=== PATIENT | female | born 1990 | race Caucasian/White ===

== ENCOUNTER 2019-09-27 23:25 | Emergency (ER) | payer MEDICAID, OTHER ==
[~2019-09-27] VITALS: Ht 165.1 cm; Wt 134.3 kg
[2019-09-27 23:43] VITALS: BP 121/73
== END 2019-09-28 01:49 | disposition left against medical advice (07) ==
LOC: ER 23:27
DX: K08.89 Other specified disorders of teeth and supporting structures (principal); Z53.21 Procedure and treatment not carried out due to patient leaving prior to being seen by health care provider

== ENCOUNTER → 2020-03-24 | Emergency (ER) | payer MEDICAID ==
[~2020-03-24] VITALS: Ht 167.6 cm; Wt 128.4 kg
[~2020-03-24] MED LIST: ENOXAPARIN SOD 100 MG/1 ML SYRINGE SC ONE
[2020-03-24 20:43] LABS: Basophils # (auto) 0.1 10 ^3/uL (0-0.2); Basophils % (auto) 0.9 % (0.0-2.0); Eosinophils # (auto) 0.2 10 ^3/uL (0-0.8); Eosinophils % (auto) 1.6 % (0.0-7.0); Hematocrit 38.7 % (36.0-46.0); Hemoglobin 11.3 g/dL (12.2-16.2); Lymphocytes # (auto) 1.9 10 ^3/uL (0.4-5.4); Lymphocytes % (auto) 17.6 % (10.0-50.0); Mean Corpuscular Hemoglobin 23.8 pg (28.0-32.0); Mean Corpuscular Hgb Conc. 29.3 g/dL (32.0-36.0); Mean Corpuscular Volume 81.3 fL (80.0-100.0); Monocytes # (auto) 0.7 10 ^3/uL (0-1.3); Monocytes % (auto) 6.4 % (0.0-12.0); Neutrophils # (auto) 8.1 10 ^3/uL (1.6-8.6); Neutrophils % (auto) 73.5 % (37.0-80.0); Platelet Count (auto) 441 10^3/uL (140-450); Red Blood Cells 4.76 10^6/uL (4.0-5.20); Red Cell Distribution Width 17.9 % (11.8-14.3)
[2020-03-24 20:55] LABS: INR 0.99 (0.9-1.15); Partial Thromboplastin Time 22.4 sec (23.0-31.2)
[2020-03-24 20:57] LABS: Albumin 2.9 g/dL (3.4-5.0); Calcium 8.5 mg/dL (8.5-10.1); Potassium 3.9 mmol/L (3.5-5.1)
[2020-03-24 21:02] LABS: BUN/Creatinine Ratio 14.3; Bilirubin, Total 0.2 mg/dL (0.2-1.0); Total Protein 7.2 g/dL (6.4-8.2)
[2020-03-24 22:08] VITALS: BP 128/84
== END | disposition home or self-care (01) ==
LOC: ER 19:08
DX: I82.432 Acute embolism and thrombosis of left popliteal vein (principal)
CPT/HCPCS: 36415; 80053; 85025; 85379; 85610; 85730; 93971; 96372; 99284; J1650

== ENCOUNTER 2020-04-27 12:20 | Inpatient (IN) | payer MEDICAID ==
[~2020-04-27] VITALS: Ht 162.6 cm; Wt 124.7 kg
[2020-04-27] MEDS ORDERED: SODIUM CHLORIDE 0.9% 1,000 ML IV ONE (13:00)
[2020-04-27] MEDS: SODIUM CHLORIDE 0.9% 1,000 ML IV ONE ×2 (13:20→17:17)
[2020-04-27] MEDS ORDERED: ENOXAPARIN SOD 100 MG/1 ML SYRINGE SC ONE (13:45)
[2020-04-27 13:50] LABS: Nucleated Red Blood Cells % 0.1 %
[2020-04-27 13:51] LABS: Basophils # (auto) 0.1 10 ^3/uL (0-0.2); Basophils % (auto) 0.9 % (0.0-2.0); Eosinophils # (auto) 0.2 10 ^3/uL (0-0.8); Eosinophils % (auto) 1.2 % (0.0-7.0); Hematocrit 38.2 % (36.0-46.0); Hemoglobin 12.3 g/dL (12.2-16.2); Lymphocytes # (auto) 1.6 10 ^3/uL (0.4-5.4); Lymphocytes % (auto) 12.6 % (10.0-50.0); Mean Corpuscular Hemoglobin 24.7 pg (28.0-32.0); Mean Corpuscular Hgb Conc. 32.2 g/dL (32.0-36.0); Mean Corpuscular Volume 76.6 fL (80.0-100.0); Monocytes # (auto) 0.8 10 ^3/uL (0-1.3); Monocytes % (auto) 6.8 % (0.0-12.0); Neutrophils # (auto) 9.7 10 ^3/uL (1.6-8.6); Neutrophils % (auto) 78.5 % (37.0-80.0); Platelet Count (auto) 492 10^3/uL (140-450); Red Blood Cells 4.99 10^6/uL (4.0-5.20); Red Cell Distribution Width 18.7 % (11.8-14.3); White Blood Cell 12.4 10^3/uL (4.4-10.8)
[2020-04-27 14:11] LABS: INR 1.03 (0.9-1.15); Partial Thromboplastin Time 23.5 sec (23.0-31.2)
[2020-04-27 14:12] LABS: Albumin 3.2 g/dL (3.4-5.0); Anion Gap 8 (5-15); Blood Urea Nitrogen 7 mg/dL (7-18); Calcium 9.3 mg/dL (8.5-10.1); Carbon Dioxide 26 mmol/L (21-32); Chloride 103 mmol/L (98-107); Glucose 97 mg/dL (74-106); Potassium 3.5 mmol/L (3.5-5.1); Sodium 137 mmol/L (136-145)
[2020-04-27 14:17] LABS: Alanine Aminotransferase 34 U/L (13-56); Alkaline Phosphatase 106 U/L (45-117); Aspartate Aminotransferase 28 U/L (15-37); BUN/Creatinine Ratio 13.5; Bilirubin, Total 0.3 mg/dL (0.2-1.0); GFR African American 176 mL/min; GFR Non-African American 145 mL/min; Total Protein 7.9 g/dL (6.4-8.2)
[2020-04-27] MEDS ORDERED: IOHEXOL 350 MG/ML 100ML IJ ONE (14:43)
[2020-04-27] MEDS ORDERED: NITROGLYCERIN 0.4 MG SL TAB SL PRN ×2 (14:45→16:00)
[2020-04-27] MEDS ORDERED: MORPHINE SULF INJ 2 MG/ML SYRINGE 1ML IV PRN ×2 (14:45→16:00)
[2020-04-27] MEDS ORDERED: SOD CHL 0.45% 1,000 ML IV ONE (14:45)
[2020-04-27] MEDS ORDERED: HEPARIN DRIP/D5W 100UNITS/ML 250 ML IV SCH (15:45)
[2020-04-27] MEDS ORDERED: MORPHINE SULFATE 4 MG/ML SYR/VIAL IV ONE (17:30)
[2020-04-27] MEDS ORDERED: HEPARIN SODIUM (PORCINE) 5000 UNITS/ML 1ML VIAL IV ONE (17:30)
[2020-04-27] MEDS: ONDANSETRON HCL 4 MG/2 ML VIAL IV PRN (17:38)
[2020-04-27] MEDS: HEPARIN DRIP/D5W 100UNITS/ML 250 ML IV SCH (18:06)
[2020-04-27] MEDS: HYDROcodone-ACET 5/325MG TAB PO PRN (19:03)
[2020-04-27] MEDS ORDERED: IBUP800T24 PO (20:28)
[2020-04-27] MEDS ORDERED: ACET-1304 PO (20:28)
[2020-04-27 21:10] LABS: Basophils # (auto) 0 10 ^3/uL (0-0.2); Eosinophils # (auto) 0.1 10 ^3/uL (0-0.8); Eosinophils % (auto) 1.1 % (0.0-7.0); Hemoglobin 10.9 g/dL (12.2-16.2); Lymphocytes # (auto) 1.7 10 ^3/uL (0.4-5.4); White Blood Cell 10.7 10^3/uL (4.4-10.8)
[2020-04-27 21:12] LABS: Basophils % (auto) 0.4 % (0.0-2.0); Hematocrit 33.7 % (36.0-46.0); Lymphocytes % (auto) 15.5 % (10.0-50.0); Mean Corpuscular Hemoglobin 24.8 pg (28.0-32.0); Mean Corpuscular Hgb Conc. 32.4 g/dL (32.0-36.0); Mean Corpuscular Volume 76.4 fL (80.0-100.0); Monocytes # (auto) 0.9 10 ^3/uL (0-1.3); Monocytes % (auto) 8.2 % (0.0-12.0); Neutrophils % (auto) 74.8 % (37.0-80.0); Platelet Count (auto) 409 10^3/uL (140-450); Red Blood Cells 4.41 10^6/uL (4.0-5.20)
[2020-04-27 21:36] LABS: INR 1.12 (0.9-1.15)
[2020-04-27 21:46] LABS: Partial Thromboplastin Time 72.3 sec (23.0-31.2)
[2020-04-27] MEDS ORDERED: ENOXAPARIN SOD 100 MG/1 ML SYRINGE SC SCH (22:00)
[2020-04-28] VITALS (22 sets, daily range): BP systolic 106–128; BP diastolic 57–81
[2020-04-28 01:00] LABS: INR 1.07 (0.9-1.15); Partial Thromboplastin Time 43.1 sec (23.0-31.2)
[2020-04-28] MEDS: ONDANSETRON HCL 4 MG/2 ML VIAL IV PRN ×3 (03:29→20:26)
[2020-04-28] MEDS: MORPHINE SULF INJ 2 MG/ML SYRINGE 1ML IV PRN ×3 (03:29→20:25)
[2020-04-28 06:32] LABS: INR 1.05 (0.9-1.15); Partial Thromboplastin Time 40.7 sec (23.0-31.2)
[2020-04-28 06:49] LABS: Monocytes # (auto) 0.7 10 ^3/uL (0-1.3); Monocytes % (auto) 8.3 % (0.0-12.0)
[2020-04-28 06:51] LABS: Basophils # (auto) 0.1 10 ^3/uL (0-0.2); Basophils % (auto) 0.6 % (0.0-2.0); Eosinophils # (auto) 0.1 10 ^3/uL (0-0.8); Eosinophils % (auto) 1.5 % (0.0-7.0); Hemoglobin 11.3 g/dL (12.2-16.2); Lymphocytes # (auto) 1.1 10 ^3/uL (0.4-5.4); Lymphocytes % (auto) 13.4 % (10.0-50.0); Mean Corpuscular Hgb Conc. 31.4 g/dL (32.0-36.0); Mean Corpuscular Volume 79.4 fL (80.0-100.0); Neutrophils # (auto) 6.5 10 ^3/uL (1.6-8.6); Neutrophils % (auto) 76.2 % (37.0-80.0); Nucleated Red Blood Cells % 0.2 %; Platelet Count (auto) 400 10^3/uL (140-450); Red Blood Cells 4.53 10^6/uL (4.0-5.20); Red Cell Distribution Width 18.8 % (11.8-14.3); White Blood Cell 8.5 10^3/uL (4.4-10.8)
[2020-04-28 07:01] LABS: Albumin 2.4 g/dL (3.4-5.0); BUN/Creatinine Ratio 18.6; Bilirubin, Total 0.2 mg/dL (0.2-1.0); Calcium 8.6 mg/dL (8.5-10.1); Potassium 3.5 mmol/L (3.5-5.1); Total Protein 6.6 g/dL (6.4-8.2)
[2020-04-28] MEDS: HEPARIN DRIP/D5W 100UNITS/ML 250 ML IV SCH ×2 (07:27→18:30)
[2020-04-28] MEDS: HYDROcodone-ACET 5/325MG TAB PO PRN ×3 (07:38→23:11)
--- NOTE | 2020-04-28 10:55 | NUR ---
Pt being admitted to ICU ALEX FOSTER admitted to ICU via gurney on property assessment monitor, and portable 02. Patient transferred to bed, connected to ICU monitoring and oxygen, and weighed by bed scale. Patient oriented to Bing Coker, primary RN, unit, room, bed, and unit policies regarding patient care and visiting hours. All questions and concerns addressed, patient verbalized understanding.
[2020-04-28 11:48] LABS: INR 1.03 (0.9-1.15); Partial Thromboplastin Time 52.3 sec (23.0-31.2)
--- NOTE | 2020-04-28 14:15 | NUR ---
URINE SAMPLE SENT
--- NOTE | 2020-04-28 15:30 | NUR ---
DR TRENT AT BEDSIDE TO ASSESS PATIENT AND DISCUSS PLAN OF CARE. ALL ORDERS NOTED IN CHART.
[2020-04-28 15:31] LABS: Urine Bacteria NONE SEEN /hpf (None Seen); Urine Blood Negative /uL (Negative); Urine Mucus FEW (None Seen); Urine WBC 15 /hpf (0 - 5)
--- NOTE | 2020-04-28 17:19 | NUR ---
PAGED LEFT MESSAGE FOR DR TRENT FOR PATIENTS PAIN. PATIENT IS COMPLAINING OF PAIN AND CURRENT MEDICATIONS NO RELIEVING LONG ENOUGH. AWAITING CALL BACK.
[2020-04-28 18:28] LABS: INR 1.03 (0.9-1.15); Partial Thromboplastin Time 58.7 sec (23.0-31.2)
--- NOTE | 2020-04-28 19:45 | NUR ---
OPENING NOTE REPORT RECEIVED FROM VALERY RN. PATIENT IS A/OX4 AND CONNECTED TO CONTINUOUS BEDSIDE MONITORS. PATIENT IS IN SINUS RHYTHM ON THE MONITOR, HEART RATE IN 80-90'S. PATIENT IS ON 2L NASAL CANNULA, SPO2 98%, PT DENIES ANY SOB OR DISTRESS. SKIN ALL INTACT AND PATIENT IS ABLE TO TURN AND REPOSITION HERSELF IN BED. HEPARIN GTT RUNNING AT 22ML/HR THROUGH LEFT AC PERIPHERAL LINE. POC DISCUSSED WITH PATIENT, ALL QUESTIONS ANSWERED. PATIENT EDUCATED TO STAY IN BED AND USE CALL LIGHT IF SHE NEEDS TO USE TO BEDPAN. PATIENT VERBALIZED UNDERSTANDING. CALL LIGHT WITHIN REACH.
--- NOTE | 2020-04-28 20:15 | NUR ---
PM CARE PATIENT CALLED TO USE THE BEDPAN. BEDPAN PLACE UNDER PATIENT. URINE FROM BEDPAN GOT ONTO CHUX AND LINEN. PATIENT GIVEN A COMPLETE LINEN CHANGE AND CLEANSED WITH WARM SOAPY WASH CLOTHS. NEW GOWN PLACED ON PATIENT.
[2020-04-29] VITALS (33 sets, daily range): BP systolic 100–139; BP diastolic 58–85
--- NOTE | 2020-04-29 00:18 | NUR ---
[facility] AT BEDSIDE TO DRAW PATIENT BURKETT
[2020-04-29 01:01] LABS: INR 1.01 (0.9-1.15); Partial Thromboplastin Time 53.3 sec (23.0-31.2)
--- NOTE | 2020-04-29 01:05 | NUR ---
PTPTT RESULT FOR PTT 53.3. THIS IS THE THIRD THERAPEUTIC VALUE. PER PHARMACY PROTOCOL, NEXT DRAW WILL BE IN 24 HOURS.
[2020-04-29] MEDS: MORPHINE SULF INJ 2 MG/ML SYRINGE 1ML IV PRN (02:26)
[2020-04-29] MEDS: ONDANSETRON HCL 4 MG/2 ML VIAL IV PRN ×2 (02:26→22:51)
--- NOTE | 2020-04-29 03:30 | NUR ---
AM CARE PATIENT USED BEDPAN AND VOIDED ON LINENS. HYGIENE CARE PROVIDED TO PATIENT. COMPLETE LINEN AND GOWN CHANGE PROVIDED.
--- NOTE | 2020-04-29 03:47 | NUR ---
CALLED THROUGH PBX. IS COVERING RIGHT NOW. SPOKE TO REGARDING PATIENTS PAIN LEVEL OF 10/10 AND VOMITING DESPITE MORPHINE AND ZOFRAN JUST GIVEN AND COMPLAINTS OF PAIN TO "UNDERNEATH RIBCAGE". MD UPDATED ON PATIENT STATUS, RHYTHM ON MONITOR AND VITALS. NEW TELEPHONE ORDER FOR DILAUDID 0.4MG Q4H PRN FOR SEVERE PAIN. ORDER TO D/C EXISTING MORPHINE ORDER. ORDER READ BACK AND VERIFIED WITH MD.
[2020-04-29] MEDS: HYDROmorphone HCL 2 MG/ML VL IV PRN ×5 (04:33→22:52)
[2020-04-29] MEDS: HEPARIN DRIP/D5W 100UNITS/ML 250 ML IV SCH ×2 (05:46→16:00)
--- NOTE | 2020-04-29 07:22 | NUR ---
CLOSING PATIENT SLEEPING COMFORTABLY, CONNECTED TO BEDSIDE MONITORS. PATIENT REMAINS ON HEPARIN GTT AT 22ML/HR. REPORT ENDORSED TO DAYSHIFT NEGAR OBANDO TO ASSUME CARE OF PATIENT.
--- NOTE | 2020-04-29 08:00 | NUR ---
PT SLEEPING AWAKENED FOR ASSESSMENT REPORTS CHEST PAIN AT RT COSTAL MARGIN, WORSE WITH DEEP BREATH AND WITH MOVEMENT. DENIES PAIN IN LEGS OR ABD. SEE INTERVENTIOS FOR FULL ASSESSMENT
--- NOTE | 2020-04-29 09:20 | NUR ---
PAIN REASSESSMENT 10/24. SLEEPING. RESP SHALLOW BUT UNLABORED.
--- NOTE | 2020-04-29 11:44 | NUR ---
AWOKE TO USE BEDPAN. AGAIN REPORTS CHEST PAIN AT RT COASTAL MARGIN 810. MED WITH MORPHINE TOO EARLY FOR CHALO
--- NOTE | 2020-04-29 15:42 | NUR ---
DR. TRENT HERE
--- NOTE | 2020-04-29 16:41 | NUR ---
REPORT GIVEN TO BOONE BILLS
--- NOTE | 2020-04-29 16:47 | NUR ---
REPORT REPORT RECEIVED FROM TOPHER BILLS, CARE ASSUMED. PT RESTING IN BED. VS STABLE, NO DISTRESS NOTED AT THIS TIME. CALL LIGHT AND PERSONAL BELONGINGS WITHIN REACH. PT INSTRUCTED TO CALL FOR ASSISTANCE. PT VERBALIZED UNDERSTANDING. WILL CONTINUE TO MONITOR.
[2020-04-29] MEDS: PANTOPRAZOLE 40 MG/10 ML VIAL INJ IV SCH (18:02)
--- NOTE | 2020-04-29 18:02 | NUR ---
PAIN PATIENT C/O 10/10 PAIN RIGHT UPPER QUADRANT. PATIENT GIVEN PRN DILAUDID PAIN MEDICATION. ASSISTED PATIENT WITH REPOSITIONING. VS REMAIN STABLE AT THIS TIME.
--- NOTE | 2020-04-29 18:30 | NUR ---
MD VISIT DR.GRIGORIYAN SARAH AT BEDSIDE. MD WOULD LIKE TO CONSULT REGARDING TPA INFUSION. CONSULTATION PLACED.
--- NOTE | 2020-04-29 19:15 | NUR ---
REPORT REPORT GIVEN TO SOLOMON BILLS, CARE ENDORSED.
--- NOTE | 2020-04-29 19:15 | NUR ---
OPENING NOTE REPORT RECEIVED FROM VALERY RN PATIENT IS A/OX4 RESTING IN BED AND ABLE TO VERBALIZE ALL NEEDS. PATIENT IS ON 2L NASAL CANNULA SPO2 AT 97%. RECEIVED PATIENT ON HEPARIN GTT. IV TO LEFT AC RUNNING HEPARIN GTT AT 22ML/HR OR 2200 UNIT/HR. IV TO RIGHT AC 18G INTACT/PATENT AND SALINE LOCKED. PATIENT STATES HER PAIN IS "COMING AND GOING". PATIENT STATES PAIN IS LOCATED UNDER RIGHT RIBCAGE AND ABDOMEN AND SAYS IT IS A BURNING SENSATION. POC DISCUSSED WITH PATIENT, ALL QUESTIONS ANSWERED. PENDING RADIOLOGY CONSULT TOMORROW.
--- NOTE | 2020-04-29 20:10 | NUR ---
PM CARE PATIENT ASKED TO USE BEDPAN. PATIENT OVERFILLED BEDPAN WITH URINE AND SOAKED LINENS. COMPLETE LINEN CHANGE PROVIDED. PATIENT CLEANED WITH WARM SOAPY WASH CLOTHS. BED BATH PROVIDED. NEW GOWN AND LINENS PROVIDED. PATIENT TOLERATED WELL AND IS ABLE TO HELP WITH TURNING.
--- NOTE | 2020-04-29 22:57 | NUR ---
PAIN PATIENT WOKE UP C/O 10/10 PAIN TO EPIGASTRIC AREA. PATIENT REQUESTED PAIN MEDICATION. DILAUDID ADMINISTERED ORDERED BY MD. WILL CONTINUE TO MONITOR.
--- NOTE | 2020-04-29 23:22 | NUR ---
PAIN REASSESSMENT PATIENT IS NOW SLEEPING COMFORTABLY. NO SIGNS OF PAIN OR DISTRESS NOTED.
[2020-04-30] VITALS (22 sets, daily range): BP systolic 112–151; BP diastolic 66–92
[2020-04-30 01:13] LABS: Basophils # (auto) 0.1 10 ^3/uL (0-0.2); Eosinophils # (auto) 0 10 ^3/uL (0-0.8); Hemoglobin 11.9 g/dL (12.2-16.2); Lymphocytes # (auto) 1.4 10 ^3/uL (0.4-5.4); Mean Corpuscular Hemoglobin 24.4 pg (28.0-32.0); Nucleated Red Blood Cells % 0.1 %
[2020-04-30 01:15] LABS: Basophils % (auto) 0.4 % (0.0-2.0); Eosinophils % (auto) 0.3 % (0.0-7.0); Hematocrit 37.1 % (36.0-46.0); Lymphocytes % (auto) 8.1 % (10.0-50.0); Mean Corpuscular Hgb Conc. 32.1 g/dL (32.0-36.0); Monocytes % (auto) 6.2 % (0.0-12.0); Neutrophils # (auto) 14.2 10 ^3/uL (1.6-8.6); Platelet Count (auto) 522 10^3/uL (140-450); Red Blood Cells 4.88 10^6/uL (4.0-5.20); Red Cell Distribution Width 18.7 % (11.8-14.3); White Blood Cell 16.7 10^3/uL (4.4-10.8)
[2020-04-30 01:29] LABS: INR 1.06 (0.9-1.15); Partial Thromboplastin Time 46.1 sec (23.0-31.2)
[2020-04-30 01:34] LABS: BUN/Creatinine Ratio 9.5; Calcium 9.5 mg/dL (8.5-10.1); Magnesium 2.2 mg/dL (1.6-2.6); Potassium 3.8 mmol/L (3.5-5.1)
--- NOTE | 2020-04-30 01:38 | NUR ---
PTT NEW PTT OF 46.1. PER PHARMACY PROTOCOL, NO BOLUS AND INCREASE BY 2 UNITS. NEW RATE OF 24ML/HR OR 2400UNIT/HR WILL ORDER NEXT PTT IN 6 HOURS.
[2020-04-30] MEDS: HEPARIN DRIP/D5W 100UNITS/ML 250 ML IV SCH ×3 (03:29→23:53)
[2020-04-30] MEDS: HYDROmorphone HCL 2 MG/ML VL IV PRN ×4 (04:19→19:22)
--- NOTE | 2020-04-30 04:20 | NUR ---
PAIN PATIENT WOKE UP C/O 10/10 PAIN. PATIENT STATES HER PAIN IS LOCATED IN HER ABDOMEN AND RIGHT LOWER RIBCAGE. DILAUDID GIVEN ORDERED BY MD. WILL REASSESS PAIN IN 30 MIN.
--- NOTE | 2020-04-30 04:50 | NUR ---
REASSESSMENT PATIENT SLEEPING COMFORTABLY AT THIS TIME, NO SIGNS OF PAIN NOTED.
--- NOTE | 2020-04-30 07:05 | NUR ---
CLOSING PATIENT RESTING IN BED ON CONTINUOUS MONITOR. HEART RATE IN 120'S, PATIENT TACHY ALL NIGHT. PATIENT REMAINS ON HEPARIN GTT AT 24ML/HR (2400UNITS/HR). NEXT PTT FOR 0740 THIS AM. CARE ENDORSED TO DAYSHIFT NEGAR MONROE TO ASSUME CARE OF PATIENT.
--- NOTE | 2020-04-30 07:05 | NUR ---
Assumed care of pt., report received per NEGAR Smart. No distress noted, pt. reading sinus tachycardia 120's, will cont.to monitor for any changes, call best in reach, assessment ongoing.
[2020-04-30 07:52] LABS: INR 1.1 (0.9-1.15); Partial Thromboplastin Time 53.8 sec (23.0-31.2)
[2020-04-30] MEDS ORDERED: OMNIPAQUE ORAL SOLN 500ml 12mg/ml PO ONE (09:08)
--- NOTE | 2020-04-30 09:15 | NUR ---
SPOKE TO PATIENT'S NURSE MABEL AND BOONE ELECTRIC MOTOR REPAIRING SUPERVISOR RE: TPA INFUSION OF PE AND CT ABD/PELVIS. PATIENT HR 128-132 AND C/O INCREASED PAIN IN CHEST. BOONE STATES PATIENT NOT STABLE FOR CT ABD/PELVIS TODAY.
[2020-04-30] MEDS: ACETAMINOPHEN 325 MG TAB PO PRN ×2 (09:19→21:58)
[2020-04-30] MEDS: HYDROcodone-ACET 5/325MG TAB PO PRN ×3 (09:19→23:07)
[2020-04-30] MEDS: PANTOPRAZOLE 40 MG/10 ML VIAL INJ IV SCH (09:21)
--- NOTE | 2020-04-30 09:30 | NUR ---
CALL PLACED TO DR REESE RE: TPA INFUSION OF TO PULM ART EMBOLISM. DR HORVATH NOT IN I.R. THIS WEEK.
--- NOTE | 2020-04-30 10:00 | NUR ---
DR REESE RETURNS CALL - INFORMED OF DR HORVATH NOT IN I.R. THIS WEEK. ADVISED MD TO CALL RN IN ICU CARING FOR PATIENT.
[2020-04-30] MEDS: DIGOXIN (250MCG/ML) 2 ML AMPULE IV SCH ×3 (10:31→21:42)
--- NOTE | 2020-04-30 11:13 | NUR ---
Nutrition Assessment Est energy needs 8838-5311 kcal (11-14kcal/kg BW 122.5kg) Est protein needs 55-71g (1-1.3g/kg IBW 54.5kg) WIll reassess prn. Addendum: 04/30/20 at [address] Amended: Links added.
--- NOTE | 2020-04-30 11:45 | NUR ---
SPOKE TO BOONE CIRCULAR KNITTER HELPER - STATES TO HOLD OFF ON CT ABD/PELIVS UNTIL PATIENT MORE STABLE. PATIENT HAVING TPA INFUSED ANGIOGRAPHY TODAY AND MAY HAVE PIGTAIL REMOVED BY TOMORROW AND BE MORE STABLE FOR CT ABD/PELVIS.
--- NOTE | 2020-04-30 11:52 | NUR ---
SPOKE TO MABEL BILLS PATIENT'S NURSE - INFORMED HIM THAT CT WOULD BE CANCELED FOR TODAY AND RE-EVALUATED FOR TOMORROW.
[2020-04-30] MEDS ORDERED: LIDOCAINE 2%HCL (LOCAL ANESTH.) INJ 20ML MDV ONE (12:50)
[2020-04-30] MEDS ORDERED: IOHEXOL 350 MG/ML 100ML IJ ONE ×2 (12:50→14:27)
--- NOTE | 2020-04-30 13:49 | NUR ---
pt. off floor to OR /c FUEL CELL ENGINEER, no distress noted, pt. SBAR given to FUEL CELL ENGINEER, will cont.to monitor for any changes upon pt. return to floor.
[2020-04-30] MEDS ORDERED: SODIUM CHL 0.9% 0 ML ONE (14:02)
[2020-04-30] MEDS ORDERED: fentaNYL CITRATE 100 MCG/2 ML VL ONE (14:02)
[2020-04-30] MEDS ORDERED: MIDAZOLAM HCL 1MG/1ML-2 ML VIAL ONE (14:02)
[2020-04-30] MEDS ORDERED: ANGIOMAX 250 MG VIAL IV ONE (14:02)
[2020-04-30] MEDS ORDERED: ALTEPLASE (RECOMBINANT) 100 MG in STERILE WATER 100 ML IV ONE (14:15)
[2020-04-30 14:44] LABS: INR 1.12 (0.9-1.15); Partial Thromboplastin Time 57.5 sec (23.0-31.2)
--- NOTE | 2020-04-30 15:10 | NUR ---
Received pt. from boot and shoe laborer, report per boot and shoe laborer RN, pt. attached to monitor and reading sinus tachycardia 1teen, will cont.to monitor for any changes, assessment ongoing.n
[2020-04-30] MEDS ORDERED: ALTEPLASE (RECOMBINANT) 100 MG in STERILE WATER 100 ML IV SCH (17:20)
--- NOTE | 2020-04-30 19:05 | NUR ---
No distress noted, pt. report given to NEGAR Mckeon. Care of pt. assumed per NOC shift, day shift relinquished care and signed off.
--- NOTE | 2020-04-30 19:12 | NUR ---
ATTEMPTED TO CONTACT LAB FOR PTT DRAW - NO ANSWER AT THIS TIME, WILL TRY AGAIN
--- NOTE | 2020-04-30 19:13 | NUR ---
CONTACTED LAB - PER LAB INVESTIGATOR VICE ON THEIR WAY
[2020-04-30] MEDS: ONDANSETRON HCL 4 MG/2 ML VIAL IV PRN (19:22)
--- NOTE | 2020-04-30 19:30 | NUR ---
OPENING NOTE: A&OX4. REPORTS 04/25 ABDOMINAL/CHEST PAIN. SINUS TACH, HR 120s. SBP 130s. LS CTA, DIMINISHED TO BASES. SHALLOW TACHYPNEIC BREATHS. SpO2>95% ON 4 L NC. ABD SOFT. HYPOACTIVE BS. LBM 04/27. VOIDING VIA BEDPAN. SKIN GROSSLY INTACT, SEE SKIN AND WOUND FLOWSHEET FOR ASSESSMENT. 18 G PIV TO RIGHT AC, CDI, AND PATENT WITH BLOOD RETURN. 20 G PIV TO LEFT AC, CDI, AND PATENT WITH BLOOD RETURN. SHEATH TO RIGHT FEMORAL, CDI, NO HEMATOMA OR ECCHYMOSIS NOTED. DENIES SHORTNESS OF BREATH, NAUSEA/VOMITING, NUMBNESS AND TINGLING AT THIS TIME. REINFORCED POC. MAINTAINED PATIENT SAFETY: ADVISED TO KEEP RIGHT LEG STRAIGHT, BED LOCKED AND IN THE LOWEST POSITION, FREQUENT VISUAL CHECKS AND CALL LIGHT WITHIN REACH. WILL CONT CARE
--- NOTE | 2020-04-30 19:41 | NUR ---
DR MORALES AT BEDSIDE: UPDATED ON PATIENT'S STATUS, AND PROCEDURE COMPLETED TODAY. NO NEW ORDERS AT THIS TIME
--- NOTE | 2020-04-30 19:44 | NUR ---
TEMP 100.7F TO LEFT AXILLARY AND 101.5F TO RIGHT AXILLARY - REMOVED BLANKETS, AND PLACED STANDING FAN IN ROOM
--- NOTE | 2020-04-30 20:18 | NUR ---
PTT 51.9 - NO CHANGE PER PROTOCOL
--- NOTE | 2020-04-30 20:29 | NUR ---
TEMP 100.4F AXILLARY - WILL CONTINUE WITH CURRENT MEASURES
[2020-04-30] MEDS: ALTEPLASE (RECOMBINANT) 100 MG in STERILE WATER 100 ML IV SCH (21:22)
--- NOTE | 2020-04-30 21:58 | NUR ---
TEMP 101.8F AXILLARY - TYLENOL PRN GIVEN
--- NOTE | 2020-04-30 23:13 | NUR ---
TEMP 101.5F AXILLARY BUT 98.2F ORALLY: PATIENT DENIES CHILLS, OR FEELING WARM. VSS OTHERWISE
[2020-05-01] VITALS (25 sets, daily range): BP systolic 122–166; BP diastolic 61–93
--- NOTE | 2020-05-01 00:20 | NUR ---
ROUNDED: SLEEPING. EVEN AND UNLABORED BREATHING. VSS OTHERWISE. WILL CONT CARE
[2020-05-01] MEDS: HYDROmorphone HCL 2 MG/ML VL IV PRN ×5 (01:18→19:55)
--- NOTE | 2020-05-01 02:00 | NUR ---
HUMIDIFIED OXYGEN: PLACED ON HUMIDIFIED OXYGEN
[2020-05-01] MEDS: HYDROcodone-ACET 5/325MG TAB PO PRN ×3 (03:31→16:28)
[2020-05-01] MEDS: ACETAMINOPHEN 325 MG TAB PO PRN ×3 (03:31→16:27)
--- NOTE | 2020-05-01 03:31 | NUR ---
RECTAL TEMP 102.6F - ICE PACKS APPLIED TO AXILLA
--- NOTE | 2020-05-01 03:32 | NUR ---
PAIN/FEVER: NORCO PRN GIVEN FOR PAIN, AND 325 MG TYLENOL PRN GIVEN FOR FEVER.
--- NOTE | 2020-05-01 03:35 | NUR ---
BLOOD-TINGED NASAL SECRETIONS: PATIENT BLEW HER NOSE, AND NOTED TO BE BLOOD TINGED. ADVISED NOT TO BLOW HER NOSE HARD
--- NOTE | 2020-05-01 03:39 | NUR ---
LARGE VOID X1
--- NOTE | 2020-05-01 03:40 | NUR ---
PARTIAL LINEN CHANGE COMPLETED
[2020-05-01 03:52] LABS: Eosinophils # (auto) 0 10 ^3/uL (0-0.8); Hemoglobin 13.6 g/dL (12.2-16.2); Lymphocytes # (auto) 0.7 10 ^3/uL (0.4-5.4); Mean Corpuscular Hemoglobin 24.9 pg (28.0-32.0); Mean Corpuscular Hgb Conc. 32.2 g/dL (32.0-36.0); Monocytes # (auto) 1.1 10 ^3/uL (0-1.3)
[2020-05-01 03:54] LABS: Basophils # (auto) 0.1 10 ^3/uL (0-0.2); Basophils % (auto) 0.3 % (0.0-2.0); Hematocrit 42.4 % (36.0-46.0); Mean Corpuscular Volume 77.3 fL (80.0-100.0); Monocytes % (auto) 4.6 % (0.0-12.0); Neutrophils # (auto) 22.1 10 ^3/uL (1.6-8.6); Neutrophils % (auto) 92.1 % (37.0-80.0); Nucleated Red Blood Cells % 0.1 %; Platelet Count (auto) 531 10^3/uL (140-450); Red Blood Cells 5.48 10^6/uL (4.0-5.20); Red Cell Distribution Width 18.6 % (11.8-14.3)
[2020-05-01 04:10] LABS: BUN/Creatinine Ratio 7.7; Calcium 9.1 mg/dL (8.5-10.1); Potassium 4.2 mmol/L (3.5-5.1)
[2020-05-01 04:30] LABS: INR 1.18 (0.9-1.15); Partial Thromboplastin Time 47.1 sec (23.0-31.2)
[2020-05-01] MEDS ORDERED: ALTEPLASE (RECOMBINANT) 100 MG ONE (04:35)
--- NOTE | 2020-05-01 04:36 | NUR ---
PTT 47.1 - INCREASED HEPARIN BY 200 UNITS/HR - CURRENT RATE 26 ML/HR
[2020-05-01] MEDS: ALTEPLASE (RECOMBINANT) 100 MG in STERILE WATER 100 ML IV SCH ×2 (04:53→11:45)
--- NOTE | 2020-05-01 05:11 | NUR ---
SPOKE WITH DR. MARTIN: NOTIFIED OF FEVER, WBC, AND INTERVENTIONS THUS FAR. ORDERS FOR BLOOD CULTURES, URINALYSIS, URINE CULTURE, CXR, AND CONTINUE WITH COOLING MEASURES. ORDERS READBACK AND VERIFIED
--- NOTE | 2020-05-01 06:12 | NUR ---
TEMP REMAINS ELEVATED - CONTINUE WITH COOLING MEASURES: ICE PACK APPLIED TO BILATERAL AXILLA, AND FAN IN ROOM. PATIENT DENIES CHILLS, OR FEELING WARM. WILL ENDORSE TO DAY SHIFT.
--- NOTE | 2020-05-01 06:15 | NUR ---
NOTIFIED LAB OF NEED FOR BLOOD CULTURE DRAW
--- NOTE | 2020-05-01 07:04 | NUR ---
REPORT AND CARE ENDORSED TO NEGAR MONROE
--- NOTE | 2020-05-01 07:05 | NUR ---
Assumed care of pt., report received per NEGAR Mckeon. No distress noted, pt. reading sinus tachycardia 130's, febrile 103.8, MD called per NOC RN, orders in place, will cont.to monitor for any changes, call best in reach, assessment ongoing.
--- NOTE | 2020-05-01 07:15 | NUR ---
Message left for Dr. Stovall to make aware of pt current condition, will cont. to monitor for any changes, assessment ongoing.
[2020-05-01] MEDS: PANTOPRAZOLE 40 MG/10 ML VIAL INJ IV SCH (10:11)
[2020-05-01 11:12] LABS: INR 1.33 (0.9-1.15); Partial Thromboplastin Time 46.7 sec (23.0-31.2)
--- NOTE | 2020-05-01 11:15 | NUR ---
Dr. Stovall notified of pt. cont. tachycardia 150's and temp 105 f. New orders received, will cont.to monitor for any changes, assessment is ongoing.
--- NOTE | 2020-05-01 11:29 | NUR ---
Blaine Conley notified of pt heart rate per Dr. Stovall, new orders received and will be implemented, will cont.to monitor for effectiveness, assessment ongoing.
[2020-05-01] MEDS: SODIUM CHLORIDE 0.9% 1,000 ML IV SCH (11:30)
[2020-05-01] MEDS: HEPARIN DRIP/D5W 100UNITS/ML 250 ML IV SCH ×2 (11:30→22:22)
[2020-05-01] MEDS ORDERED: SODIUM CHLORIDE 0.9% 1,000 ML IV ONE ×2 (11:30→12:00)
[2020-05-01] MEDS ORDERED: VANCOMYCIN PER PHARMACY 0 MG IV SCH (11:30)
--- NOTE | 2020-05-01 11:30 | NUR ---
Andrews catheter insertion Patient assessed and determined to be in need of andrews catheter. Order obtained from MD. Patient educated on catheter and reason for insertion. All questions answered. Andrews catheter 16 guage Amharic inserted with clean sterile technique. Patient tolerated well.
[2020-05-01] MEDS ORDERED: levoFLOXacin 500MG 100 ML IV ONE (12:00)
[2020-05-01] MEDS: VANCOMYCIN 1GM/250ML 250 ML IV SCH ×2 (12:24→19:54)
[2020-05-01] MEDS ORDERED: CEFTRIAXONE SODIUM 2 GM in D5W 5% 50 ML IV SCH (14:00)
[2020-05-01] MEDS: metroNIDAZOLE 500MG/100ML 100 ML IV SCH ×2 (14:50→22:19)
--- NOTE | 2020-05-01 15:24 | NUR ---
Midline Placement: Patient educated on need for midline placement. All risks and benefits explained and all questions and concerns addresses prior to procedure. 18g/10 cm midline inserted via right cephalic vein using Ultrasound. Sterile technique utilized. Blood return obtained from the single lumen and flushed easily with NS using proper technique. Midline secured with saline lock; biodisc and occlusive dressing applied. Primary RN Tashi notified. Midline lot # [id number] Midline Placement: Patient educated on need for midline placement. All risks and benefits explained and all questions and concerns addresses prior to procedure. 18g/8 cm midline inserted via left cephalic vein using Ultrasound. Sterile technique utilized. Blood return obtained from the single lumen and flushed easily with NS using proper technique. Midline secured with saline lock; biodisc and occlusive dressing applied. Primary NEGAR Akins notified. Placed by Mallorie Conley NP Midline lot # [id number]
[2020-05-01 16:23] LABS: Albumin 2.7 g/dL (3.4-5.0)
[2020-05-01 16:27] LABS: Bilirubin, Total 3.3 mg/dL (0.2-1.0); Total Protein 8.5 g/dL (6.4-8.2)
[2020-05-01 16:54] LABS: Bilirubin, Direct 2.7 mg/dL (0-0.2)
--- NOTE | 2020-05-01 17:30 | NUR ---
Merchandise Planning Manager paged for transfer needs, will cont.to monitor for any changes, assessment ongoing.
--- NOTE | 2020-05-01 17:51 | NUR ---
Dr. Singletary notified of pt. needing higher level of care per Dr. Wilcox, according to Dr. Singletary pt. ok to transfer out, will cont.to monitor for any changes, assessment ongoing.
--- NOTE | 2020-05-01 18:00 | NUR ---
[employer] Business Segment Leader paged again for transfer needs, no returned call as of now, will cont.to monitor for any changes, assessment ongoing.
--- NOTE | 2020-05-01 18:30 | NUR ---
Manufacturing Design Engineer paged again for transfer needs, still no return call as of now, will cont.to monitor for any changes, assessment ongoing.
[2020-05-01 18:37] LABS: Amylase 7 U/L (25-115); Lipase 23 U/L (73-393)
[2020-05-01] MEDS ORDERED: OMNIPAQUE ORAL SOLN 500ml 12mg/ml PO ONE (18:51)
[2020-05-01 19:01] LABS: INR 1.43 (0.9-1.15)
--- NOTE | 2020-05-01 19:05 | NUR ---
CRITICAL PTT 99.0, Heparin stopped, will NOC RN to restart per protocol, assessment ongoing.
--- NOTE | 2020-05-01 19:10 | NUR ---
No distress noted, pt. report given to NEGAR Mckeon. Care of pt. assumed per NOC shift, day shift relinquished care and signed off.
[2020-05-01] MEDS ORDERED: ACETAMINOPHEN 650 MG RECT SUPP PR PRN (19:30)
[2020-05-01] MEDS: ONDANSETRON HCL 4 MG/2 ML VIAL IV PRN (19:55)
--- NOTE | 2020-05-01 20:00 | NUR ---
RIGHT GROIN PREVIOUS SHEATH SITE: NO ACTIVE BLEEDING, NO HEMATOMA, NO ECCHYMOSIS.
--- NOTE | 2020-05-01 20:15 | NUR ---
HEPARIN GTT RESTARTED AT 2500 UNITS/HR PER PROTOCOL
--- NOTE | 2020-05-01 21:15 | NUR ---
ORAL CONTRAST: PATIENT CONSUMED ~ 600ML OF ORAL CONTRAST UNTIL SHE SAID SHE FELT "TOO BLOATED." RADIOLOGY AWARE, ADVISED TO INSTRUCT PATIENT TO DRINK A FEW MORE SIPS OF CONTRAST
--- NOTE | 2020-05-01 21:27 | NUR ---
LEFT TO CT WITH MADISYN GARRISON RN; NEGAR ANDRADE; AND US CHRIS
--- NOTE | 2020-05-01 21:40 | NUR ---
RETURNED FROM CT
--- NOTE | 2020-05-01 21:50 | NUR ---
FULL LINEN CHANGE COMPLETED
--- NOTE | 2020-05-01 21:51 | NUR ---
BLOOD CULTURE RESULTS: RECEIVED CALL FROM LAB. BLOOD CULTURES X2: GRAM POSITIVE ENTEROCOCCI IN PAIRS. Addendum: 05/02/20 at 0420 by Linda Charles RN RN GRAM POSITIVE COCCI IN PAIRS Addendum: 05/02/20 at 0609 by Linda Charles RN RN FROM AEROBIC BOTTLE
[2020-05-01 22:39] LABS: Urine Bacteria FEW /hpf (None Seen); Urine Blood Negative /uL (Negative); Urine Hyaline Cast FEW /lpf (0 - 2); Urine Mucus FEW (None Seen); Urine Specific Gravity 1.005 (1.001-1.035); Urine WBC 1 /hpf (0 - 5)
[2020-05-02] VITALS (20 sets, daily range): BP systolic 105–144; BP diastolic 66–85
[2020-05-02] MEDS: SODIUM CHLORIDE 0.9% 1,000 ML IV SCH ×2 (00:50→04:17)
--- NOTE | 2020-05-02 02:06 | NUR ---
SENT BLOOD FOR TIMED PTT
[2020-05-02 02:34] LABS: INR 1.35 (0.9-1.15); Partial Thromboplastin Time 55.6 sec (23.0-31.2)
--- NOTE | 2020-05-02 02:53 | NUR ---
PTT 55.6 - CONTINUE AT CURRENT RATE PER PROTOCOL
--- NOTE | 2020-05-02 02:54 | NUR ---
BLOOD SENT FOR TIMED VANCO TROUGH
--- NOTE | 2020-05-02 03:00 | NUR ---
TEMP 100.8F RECTALLY - TYLENOL PRN GIVEN AND COOLING BLANKET PLACED UNDER PATIENT
[2020-05-02] MEDS: HYDROmorphone HCL 2 MG/ML VL IV PRN ×5 (03:10→20:09)
[2020-05-02 03:19] LABS: Eosinophils # (auto) 0 10 ^3/uL (0-0.8); Eosinophils % (auto) 0.3 % (0.0-7.0); Hemoglobin 10.2 g/dL (12.2-16.2); Mean Corpuscular Hemoglobin 24.1 pg (28.0-32.0); Monocytes # (auto) 0.6 10 ^3/uL (0-1.3); White Blood Cell 13.9 10^3/uL (4.4-10.8)
[2020-05-02 03:21] LABS: Basophils # (auto) 0 10 ^3/uL (0-0.2); Basophils % (auto) 0.2 % (0.0-2.0); Hematocrit 32.5 % (36.0-46.0); Lymphocytes # (auto) 0.3 10 ^3/uL (0.4-5.4); Lymphocytes % (auto) 1.9 % (10.0-50.0); Mean Corpuscular Hgb Conc. 31.3 g/dL (32.0-36.0); Mean Corpuscular Volume 76.7 fL (80.0-100.0); Monocytes % (auto) 4.1 % (0.0-12.0); Neutrophils % (auto) 93.5 % (37.0-80.0); Platelet Count (auto) 263 10^3/uL (140-450); Red Blood Cells 4.24 10^6/uL (4.0-5.20); Red Cell Distribution Width 18.7 % (11.8-14.3)
[2020-05-02 03:34] LABS: Albumin 1.8 g/dL (3.4-5.0); BUN/Creatinine Ratio 10.5; Potassium 4.4 mmol/L (3.5-5.1)
[2020-05-02 03:43] LABS: Bilirubin, Total 3.2 mg/dL (0.2-1.0); Total Protein 6.5 g/dL (6.4-8.2)
--- NOTE | 2020-05-02 03:45 | NUR ---
TEMP 102F RECTALLY Addendum: 05/02/20 at 0346 by Linda Charles RN RN CONTINUED WITH COOLING MEASURES
[2020-05-02 03:51] LABS: Bilirubin, Direct 1.7 mg/dL (0-0.2)
[2020-05-02] MEDS: VANCOMYCIN 1GM/250ML 250 ML IV SCH ×4 (03:57→23:35)
--- NOTE | 2020-05-02 04:34 | NUR ---
RIGHT GROIN PREVIOUS SHEATH SITE: NO ACTIVE BLEEDING, NO HEMATOMA, NO ECCHYMOSIS.
[2020-05-02] MEDS: metroNIDAZOLE 500MG/100ML 100 ML IV SCH ×3 (05:41→21:26)
--- NOTE | 2020-05-02 06:09 | NUR ---
BLOOD CULTURE RESULTS: FROM ANAEROBIC BOTTLE - GRAM POSITIVE COCCI IN PAIRS AND CHAINS
--- NOTE | 2020-05-02 06:10 | NUR ---
TEMP DOWN TO 99.7F RECTALLY
--- NOTE | 2020-05-02 07:34 | NUR ---
REPORT AND CARE ENDORSED TO NEGRA JANE
--- NOTE | 2020-05-02 08:00 | NUR ---
AM ASSESSMENT COMPLETED. ALERT ORIENTED. LS CTA AND DIMINISHED TO THE BASES. ON 2 L NC, DENIES CP OR S.O.B CURRENTLY AFEBRILE, ST IN THE 110'S ON PT ON HEPARIN GTT. PT WAS ADMITTED WITH A LLL DVT & A PULMONARY EMBOLI FOR WHICH SHE HAD AN IVC FILTER PLACE AND NOW SHE HAS ACUTE CHOLECYSTITIS FOR WHICH SHE REQUIRES SURGERY BUT SHE IS UNABLE TO HAVE SURGERY BECAUSE SHE WAS TREATED WITH TPA FOR THE PE. PT HAS PAPERWORK FOR MRCP TRANSFER FOR HIGHER LEVEL OF CARE. I TALKED TO PT AND PT STATES THAT THE PHYSICIANS TOLD HER THAT BECAUSE ENEIDA THE TPA SHE IS NOT A SURGICAL CANDIDATE UNTIL 30 DAYS FROM TPA. ABDOMEN TENDER BUT SOFT TO THE TOUCH + BOWEL SOUNDS, LAST BM YESTERDAY, FC DRAINING DARK SONIA URINE. PULSES PALPABLE IN ALL 4 EXTREMITIES. PT REMAINS NPO. DENIES N/V/D AT THIS TIME. EDUCATED ON POSSIBLE TRANSFER PT VERBALIZED UNDERSTANDING.
[2020-05-02] MEDS: HEPARIN DRIP/D5W 100UNITS/ML 250 ML IV SCH ×3 (08:17→19:00)
--- NOTE | 2020-05-02 08:25 | NUR ---
MEDICATED WITH 0.5 MG FOR 03/26 RUQ PAIN PT STATES IT INCREASES WITH ACTIVITY. PT WANTED PAIN MEDICINE PRIR TO BEING REPOSITIONED. BLOOD DRAWN THROUGH MARGA MIDLINE TO CHCK PTT PT CURRENTLY ON HEPARIN GTT AT 2500 UNITS/HR PT COUGHING UP BLOOD I TOLD HER HEPARIN WILL BE ADJUSTED ONCE HEPARIN GTT RESULTS COME OUT SHORTLY.
--- NOTE | 2020-05-02 09:00 | NUR ---
PAIN RESOLVED . PT ABLE TO REPOSITIONED HERSELF WITH MINIMAL ASSISTANCE.
[2020-05-02 09:01] LABS: INR 1.32 (0.9-1.15); Partial Thromboplastin Time 57.9 sec (23.0-31.2)
--- NOTE | 2020-05-02 09:30 | NUR ---
RETORT UNLOADER BRUNO CALLED BACK. SHE GAVE ME A LIST OF INFORMATION TO FAX TO [facility] AND A TELEPHONE # TO CALL [facility] TO SEE IF THEY HAVE ROOM TO ACCEPT PT.
--- NOTE | 2020-05-02 09:31 | NUR ---
DR. REESE AND DR. HESTER ARE BOTH ROUNDING ON PT AT THE SAME TIME. UPDATED BOTH ON PT'S CONDITION. NO NEW ORDERERS OBTAINED. DR. HESTER CHECKED WITH DR. SAUNDERS TO SEE IF IT WAS RECOMMENDED START TPN.
--- NOTE | 2020-05-02 09:40 | NUR ---
I CALLED [facility] NO ANSWER IN MANUAL ARTS THERAPIST PHONE RANG ABOUT 20x
--- NOTE | 2020-05-02 09:57 | NUR ---
PTT= 57.9 NO CHANGE TO HEPARIN GTT, IT WILL REMAIN AT 2500 UNITS /HR
--- NOTE | 2020-05-02 09:58 | NUR ---
TPA WAS STOPPED YESTERDAY AT 1600.
[2020-05-02] MEDS: PANTOPRAZOLE 40 MG/10 ML VIAL INJ IV SCH (10:08)
[2020-05-02] MEDS: levoFLOXacin 500MG 100 ML IV SCH (10:08)
[2020-05-02] MEDS: ALTEPLASE (RECOMBINANT) 100 MG in STERILE WATER 100 ML IV SCH (10:21)
--- NOTE | 2020-05-02 10:25 | NUR ---
I CALLED [facility] STOCK BROKER SUPERVISOR, I SPOKE WITH LENKA THEY DON'T HAVE ANY ICU BED AVAILABILITY TO TAKE PT.
--- NOTE | 2020-05-02 11:11 | NUR ---
education counselor 05/02/20 I received a page from Jessica BILLS stating patient needs higher level of care for MRCP. I informed Jessica to send transfer packet to [place] and to [facility] for bed availability. I have contacted Jaylin VÁSQUEZ case worker covering for Martita case worker. I have left a message for Jaylin letting her know about higher level of care and to return my call for authorization. Waiting education counselor back now. Addendum: 05/02/20 at 1114 by Ayanna ANDRES Amended: Links added.
--- NOTE | 2020-05-02 11:20 | NUR ---
I CALLED [facility] AND THEY STILL HAVE NOT RECEIVED THE FAX ANNEALING FURNACE TENDER GEOFF FAXED THEM 20 MIN. AGO TO FAX , I RECEIVED A 2NFD FAX TO FAX ALL PT'S INFORMATION AGAIN . I HAD UROLOGY PHYSICIAN ASSISTANT GEOFF FAX ALL REQUESTED INFORMATION FOR A 2ND TIME.
--- NOTE | 2020-05-02 12:06 | NUR ---
MEDICATED WITH 0.5 MG OF DILAUDID IVP FOR 10/10 RUQ PAIN, PRIOR TO REPOSITIONING PT PER PT'S REQUEST.
--- NOTE | 2020-05-02 12:33 | NUR ---
I CALLED [facility], I SPOKE WITH ELROY AND I ASKED IF SHE HAD RECEIVED ALL THE PAPERWORK I HAD SENT HER, SHE SAID YES. I ASKED IF THERE WAS ANYTHING ELSE SHE NEEDED FROM US, SHE SAID SHE WAS REVIEWING THE PAPERWORK AND THAT SHE COULD NOT BELIEVE THAT THE PT WAS "NOT TESTED FOR COVID". I INFORMED HER THAT I HAD RUN A TEST ON PT AND THAT I SHOULD HAVE THE RESULTS BY 1400. SHE TOLD ME SHE'LL START WORKING ON AN ICU BED.
--- NOTE | 2020-05-02 12:36 | NUR ---
PT'S PAIN SUBSIDED. REPOSITIONED FOR COMFORT, PT WAS ASLEEP, SHE HAD TO BE WOKEN UP TO BE ASSISTED TO REPOSITION HERSELF IN BED. PT IS LAYING ON A COOLING BLANKET TO KEEP HER FEVER FROM SPIKING UP. PT TOLERATING BLANKET WELL. SKIN REMAINS INTACT. PT'S RT GROIN WHERE SHE USED TO HAVE SHEET FOR TPA INFUSION FOR THE SADDLE PE IS BENIN NO BRUISING OR HEMATOMA OR BLEEDING. DRESSING REMAINS CDI ON RT GROIN, PULSE ON DISTAL EXTREMITY IS INTACT.
--- NOTE | 2020-05-02 13:03 | NUR ---
re-assessment Jaylin case hardener called me back and requested clinicals to be faxed to her at [phone]. Per Jaylin auth for facility is [id number]. Auth for [facility] [id number]. Joe VÁSQUEZ case hardener will take over at 2pm [phone]. Jessica BILLS has been notified. Per Jessica she will fax clinicals to [facility]. Addendum: 05/02/20 at 1306 by Ayanna ANDRES Amended: Links added.
--- NOTE | 2020-05-02 13:13 | NUR ---
TYPEWRITER ALIGNER BRUNO CALL TO GET AN UPDATE ON PT'S TRANSFER STATUS. I NOTIFIED HER THAT [facility], DOESN'T HAVE ANY BEDS AND THAT [facility] IS IS LOOKING FOR AN ICU BED BUT THEY ARE WAITING ON PT'S COVID TEST RESULT.PT'S RESULT WILL BE AVAILABLE AFTER 2 PM. SHE WAS SUGGESTING [employer]. I TOLD HER PT IS HIGHER LEVEL OF CARE D/T HAVING RECEIVED TPA, BEEN ON HEPARIN GTT. THEN SHE SAID, LETS STICK TO [facility].
--- NOTE | 2020-05-02 15:41 | NUR ---
I CALLED [facility] TO CHECK ON PT'S COVID TEST RESULT. I WAS TOLD ITS STILL RUNNING THAT RESULTS ARE GOING TO BE AVAILABLE AROUND 5:30.
--- NOTE | 2020-05-02 16:15 | NUR ---
MEDICATED WITH 0.5 MG OF DILAUDID IVP FOR 1O/10 RUQ PAIN. PT WILL REPOSITION HERSELF WITH ASSISTANCE AFTER 15 MIN.
--- NOTE | 2020-05-02 17:00 | NUR ---
CHA VIRUS PCR NEGATIVE
--- NOTE | 2020-05-02 17:00 | NUR ---
[facility] CALLED BACK . I SPOKE WITH RAVEN HE STATES THAT " PT IS NOT A CANDIDATE FOR MRCP DUE TO THE HIGH RISK FOR BLEEDING" D/T PT HAVING RECEIVED TPA. I ASKED WHEN WOULD PT BE ABLE TO GET MRCP HE STATE IN 30 DAYS , "SAME A SURGERY". THE TRANSFER CENTER ALREADY COMMUNICATED THIS TO DR. TRENT. I NOTIFIED CHARGED NURSE EDIN AND SPECIALTY DEPARTMENT SUPERVISOR TERI AT THIS TIME.
[2020-05-02 18:12] LABS: INR 1.24 (0.9-1.15); Partial Thromboplastin Time 54.4 sec (23.0-31.2)
--- NOTE | 2020-05-02 18:27 | NUR ---
DR. TRENT CALLED ME STATING THAT THE DIRECTOR FROM [facility] CALLED HIM DR. PAGE THAT PT RECEIVED TPA FOR QUITE SOME TIME AND BECAUSE OF THAT PT COULDN'T BE TRANSFERRED TO [facility] TO GET [facility] DUE TO THE RISK FOR BLEEDING. I NOTIFIED DR. TRENT THAT I WAS ALREADY AWARE OF THAT THAT THE [facility] HAD NOTIFIED ME AND THEY TOLD ME THEY HAD ALREADY NOTIFIED HIM.
--- NOTE | 2020-05-02 18:32 | NUR ---
PTT = 54.4 NO CHANGES MADE TO [facility] GTT. NEXT PTT IS DUE TOMORROW IN [facility].
--- NOTE | 2020-05-02 19:08 | NUR ---
REPORT GIVEN TO NEGAR CLEARY
--- NOTE | 2020-05-02 19:42 | NUR ---
PATIENT REQUESTING PAIN MEDICATION - ADVISED THAT IT IS TOO SOON. PATIENT AMENDABLE TO WAIT.
--- NOTE | 2020-05-02 20:10 | NUR ---
OPENING NOTE: A&OX4. REPORTS 04/25 PAIN TO RUQ. SINUS TACH, HR 100s. SBP 120-130s. LS CTA, DIMINISHED TO BASES. SHALLOW TACHYPNEIC BREATHS. SpO2>95% ON 2L NC. ABD SOFT. HYPOACTIVE BS. LBM 04/27. NPO. ANN PATENT AND INTACT DRAINING, YELLOW URINE. SKIN GROSSLY INTACT, SEE SKIN AND WOUND FLOWSHEET FOR ASSESSMENT. 18 G PIV TO RIGHT AC, CDI, AND PATENT WITH BLOOD RETURN. BILATERAL UPPER ARM MIDLINES, CDI, AND PATENT WITH BLOOD RETURN. PREVIOUS SHEATH SITE TO RIGHT FEMORAL, CDI, NO HEMATOMA OR ECCHYMOSIS NOTED. DENIES SHORTNESS OF BREATH, NAUSEA/VOMITING, NUMBNESS AND TINGLING AT THIS TIME. REINFORCED POC. MAINTAINED PATIENT SAFETY: BED LOCKED AND IN THE LOWEST POSITION, FREQUENT VISUAL CHECKS AND CALL LIGHT WITHIN REACH. WILL CONT CARE
--- NOTE | 2020-05-02 20:12 | NUR ---
REPOSITIONING: PATIENT REQUESTING TO USE THE TURNING FEATURE ON THE BED INSTEAD OF MANUAL TURNING.
--- NOTE | 2020-05-02 20:12 | NUR ---
BATH/HYGIENE: ADVISED PATIENT THAT SHE NEEDS TO HAVE A BED BATH D/T REFUSAL FOR LAST COUPLE OF DAYS. PATIENT AGREEABLE.
--- NOTE | 2020-05-02 20:12 | NUR ---
TEMP 100.2F RECTALLY: CONTINUE WITH COOLING MEASURES: COOLING BLANKET UNDER PATIENT, STANDING FAN OSCILLATING IN ROOM.
--- NOTE | 2020-05-02 22:30 | NUR ---
BED BATH WITH CHG WIPES, JUAN CARE, ANN CARE, AND PARTIAL LINEN CHANGE COMPLETED
--- NOTE | 2020-05-02 22:30 | NUR ---
PREVIOUS SHEATH SITE TO RIGHT GROIN: REMOVED FOAM TAPE. SITE WITH MINIMAL ECCHYMOSIS, NO HEMATOMA OR ACTIVE BLEEDING. CLEANSED WITH CHLORHEXIDINE SWAB. LET AIR DRY. COVERED WITH GAUZE AND TEGADERM.
[2020-05-03] VITALS (24 sets, daily range): BP systolic 116–142; BP diastolic 68–98
--- NOTE | 2020-05-03 00:46 | NUR ---
TEMP DOWN TO 98.4F
[2020-05-03] MEDS: HYDROmorphone HCL 2 MG/ML VL IV PRN ×6 (01:19→22:15)
[2020-05-03] MEDS: SODIUM CHLORIDE 0.9% 1,000 ML IV SCH (03:21)
[2020-05-03] MEDS: HEPARIN DRIP/D5W 100UNITS/ML 250 ML IV SCH ×3 (03:23→21:20)
[2020-05-03 04:25] LABS: Basophils # (auto) 0 10 ^3/uL (0-0.2); Eosinophils # (auto) 0.2 10 ^3/uL (0-0.8); Hemoglobin 9.6 g/dL (12.2-16.2); Lymphocytes # (auto) 0.5 10 ^3/uL (0.4-5.4); Monocytes # (auto) 0.7 10 ^3/uL (0-1.3)
[2020-05-03 04:28] LABS: Basophils % (auto) 0.4 % (0.0-2.0); Eosinophils % (auto) 1.6 % (0.0-7.0); Hematocrit 29.5 % (36.0-46.0); Lymphocytes % (auto) 4.7 % (10.0-50.0); Mean Corpuscular Hgb Conc. 32.6 g/dL (32.0-36.0); Mean Corpuscular Volume 76.6 fL (80.0-100.0); Neutrophils # (auto) 9.1 10 ^3/uL (1.6-8.6); Neutrophils % (auto) 86.3 % (37.0-80.0); Nucleated Red Blood Cells % 0.1 %; Platelet Count (auto) 288 10^3/uL (140-450); Red Blood Cells 3.85 10^6/uL (4.0-5.20); Red Cell Distribution Width 18.7 % (11.8-14.3); White Blood Cell 10.5 10^3/uL (4.4-10.8)
[2020-05-03 04:39] LABS: Potassium 3.2 mmol/L (3.5-5.1)
[2020-05-03 04:45] LABS: Albumin 1.8 g/dL (3.4-5.0); BUN/Creatinine Ratio 19.2; Bilirubin, Total 2.8 mg/dL (0.2-1.0); Calcium 8.1 mg/dL (8.5-10.1); Magnesium 2.5 mg/dL (1.6-2.6); Phosphorus 2.1 mg/dL (2.5-4.90); Total Protein 6.1 g/dL (6.4-8.2)
[2020-05-03 04:50] LABS: INR 1.18 (0.9-1.15); Partial Thromboplastin Time 60.5 sec (23.0-31.2)
--- NOTE | 2020-05-03 04:57 | NUR ---
PTT 60.5 - CONTINUE WITH CURRENT RATE OF HEPARIN GTT
[2020-05-03] MEDS: metroNIDAZOLE 500MG/100ML 100 ML IV SCH ×3 (04:58→21:19)
[2020-05-03] MEDS: VANCOMYCIN 1GM/250ML 250 ML IV SCH ×3 (06:06→17:52)
--- NOTE | 2020-05-03 07:10 | NUR ---
REPORT AND CARE ENDORSED TO NEGAR JANE
--- NOTE | 2020-05-03 08:00 | NUR ---
AM ASSESSMENT COMPLETED. REMAINS ON HEPARIN GTT AT 2500 UNITS /HR FOR PE AND DVT TREATMENT. PT DENIES ANY CP OR S.O.B . CURRENTLY ON 2 L O2 VIA NC. REMAINS ON BED REST AT THIS TIME. EDUCATED ON POC. PT VERBALIZED UNDERSTANDING. MONITOR ALARMS VERIFIED AT THIS TIME. BOTH MIDLINES BENIGN AND PATENT. ASSISTED HER TO REPOSITION HER SELF FOR COMFORT. RT GROIN REMAINS FREE FROM HEMATOMA OR BRUISING, PULSES ARE EQUAL ON BOTH FEET. FC SECURED WITH SECUREMENT DEVICE DRAINING DARK SONIA URINE TO GRAVITY.
[2020-05-03] MEDS ORDERED: POTASSIUM CHLORIDE 40 MEQ, LIDOCAINE 1% (LOCAL ANESTH.) 4 ML in SODIUM CHL 0.9% 100 ML IV ONE (08:45)
[2020-05-03] MEDS: levoFLOXacin 500MG 100 ML IV SCH (09:27)
[2020-05-03] MEDS: PANTOPRAZOLE 40 MG/10 ML VIAL INJ IV SCH (09:27)
--- NOTE | 2020-05-03 10:30 | NUR ---
DR. TONY IN TO SEE PT. UPDATED ON PT'S CONDITION, MD IS MAKING SOME RECOMMENDATIONS FOR WHEN PRIMARY MD ROUNDS. HE'LL DOCUMENT THEM ON HIS PROGRESS NOTES.
--- NOTE | 2020-05-03 11:08 | NUR ---
DR. Misbah SAUNDERS IN TO SEE PT HE RECOMMENDS THE FOLLOWING IF OK WITH PRIMARY MD. HE PREFERS THAT PT STAY ON HEPARIN GTT, EASIER TO MANAGE FAR BLEEDING GOES. HE RECOMMENDS PT TO HAVE PHYSICAL THERAPY TO START AMBULATING. HE RECOMMENDS ONLY CLEAR LIQUID DIET. PT SHOULD REMAIN IN ICU FOR AT LEAST ONE MORE DAY. IF MD HAS ANY QUESTIONS TO PLEASE CALL HIM.
--- NOTE | 2020-05-03 11:21 | NUR ---
DR. INTERIANO IN TO SEE PT. UPDATED ON PT'S CONDITION & DR. SAUNDERS'S RECOMMENDATIONS MD AGREES WITH ALL OF DR. SAUNDERS'S SUGGESTIONS HE'LL WRITE ORDERS. ASSESSED PT.
--- NOTE | 2020-05-03 11:21 | NUR ---
BLOOD DRAWN FOR VANCO THROUGH THROUGH [facility] AND SENT TO LAB WITH CARPET OR RUG LAYER HELPER.
--- NOTE | 2020-05-03 11:24 | NUR ---
Nutrition Followup Notes Pt wt is 125.6 kg Pt was sleeping when rounded this morning. Pt is with a Clear Liquid diet, first meal being served this morning, no PO intake recorded yet. Est energy needs 2914-8163 kcal (11-14kcal/kg BW 122.5kg) Est protein needs 55-71g (1-1.3g/kg IBW 54.5kg) Will reassess prn. LABS: Ca 8.1 L, Mg 2.1 L, Bili 2.8 H, Alk Phos 242 H, Alb 1.8 L, GI: Pt with no BM today per RN doc BS: 18 mod risk. Refer to wound assessment report for full details. PES: Problem Inadequate oral intake r/t current medical condition aeb pt with 25% x1 and 100% x 1 with multiple 0% PO per RN note Malnutrition related to morbid BMI> or equal to 40 Malnutrition related to morbid obesity Yes Recommendations by RD Protein Supplementation Comments Will continue to monitor PO status, skin status, pertinent labs and weight trends. Will f/u in 2-3 days. 1) Continue to monitor po intake, labs, skin 2) refer pt to [facility]PD on DC 3) Continue current plan of care Consider adding Ensure HP TID if pt po intake continues to be poor
--- NOTE | 2020-05-03 11:54 | NUR ---
FC REMOVED 450 ML OF DARK SONIA URINE REMOVED. PT PENDING TO VOID .NO BLEEDING POST REMOVAL, TOLERATED PROCEDURE WELL.
--- NOTE | 2020-05-03 15:30 | NUR ---
VOIDED 650 + WHAT EVER ELSE SPILLED OVER ON PT'S BED FROM BED BELL. POST FC REMOVAL. THIS IS PT'S 1ST VOID S/P FC REMOVAL. COMPLETE BED BATH GIVEN AND AND ASSISTED REPOSITIONING FOR COMFORT.
--- NOTE | 2020-05-03 16:46 | NUR ---
PAGED PT TO COME TO AMBULATE PT. THIS IS THE 2ND CALL. PT CALLED BACK AND SAID THAT THEY'LL COME TO SEE PT.
--- NOTE | 2020-05-03 17:00 | NUR ---
PT IN TO SEE PT. PT WAS A TOTAL LIFT FOR THERAPIST, PT DID NOT WANT TO ASSIST CARRYING HER OWN WEIGHT TO BE TRANSFERRED INTO CHAIR. PT WAS C/O RT LEG/ GROIN PAIN WHEN PUTTING PRESSURE ON HER FEET. THAT'S WHERE PT USED TO HAVE ARTERIAL SHEET FOR TPA INFUSION. SITE IS FREE FROM HEMATOMA OR BRUISING. PT HAS A SMALL DRESSING THAT IS CDI. PULSES TO DISTAL EXTREMITIES ON THE FEET ARE INTACT. PT WAS C/O FEELING DIZZY AND LIGHT HEADED IMMEDIATELY AFTER SITTING DOWN IN CHAIR. COUPLE MINUTES LATER PT IS SITTING DOWN DRINKING WATER AND WATCHING TV WITHOUT A WORRY IN THE WORLD.
--- NOTE | 2020-05-03 17:43 | NUR ---
PHYSICAL THERAPIST TRIXIE PLACED PT BACK TO BED. PT TOLERATED PROCEDURE WELL.
[2020-05-03] MEDS ORDERED: VANCOMYCIN 1GM/250ML 250 ML IV ONE (19:00)
[2020-05-04] VITALS (19 sets, daily range): BP systolic 114–139; BP diastolic 61–90
[2020-05-04] MEDS: VANCOMYCIN 1GM/250ML 250 ML IV SCH ×4 (00:21→18:00)
[2020-05-04] MEDS: HYDROmorphone HCL 2 MG/ML VL IV PRN ×5 (04:10→21:55)
[2020-05-04] MEDS: SODIUM CHLORIDE 0.9% 1,000 ML IV SCH ×3 (04:42→19:30)
[2020-05-04 05:00] LABS: INR 1.13 (0.9-1.15); Partial Thromboplastin Time 56.9 sec (23.0-31.2)
[2020-05-04 05:01] LABS: BUN/Creatinine Ratio 11.1; Calcium 8.3 mg/dL (8.5-10.1); Magnesium 2.6 mg/dL (1.6-2.6); Potassium 3.3 mmol/L (3.5-5.1)
--- NOTE | 2020-05-04 05:34 | NUR ---
UNEVENTFUL NIGHT, PT IS HEMODYNAMICALLY STABLE ,AFEBRILE, TOLERATED FULL LIQUIDS,NO C/O NAUSEA, REMAINS ON HEPARIN GTT. K LEVEL 3.3 THIS AM, REPORTED TO DR MON, REPLACEMENT ORDERED, VOIDINNG QS.
[2020-05-04] MEDS: metroNIDAZOLE 500MG/100ML 100 ML IV SCH ×3 (05:44→22:00)
[2020-05-04] MEDS: HEPARIN DRIP/D5W 100UNITS/ML 250 ML IV SCH (07:01)
[2020-05-04] MEDS: POTASSIUM CHL 20MEQ/100ML 100 ML IV SCH ×2 (07:45→11:58)
--- NOTE | 2020-05-04 09:55 | NUR ---
BOONE WATER LEAK REPAIRER VISITS-ORDERS RECEIVED.
[2020-05-04] MEDS ORDERED: APIXABAN 5 MG TAB PO SCH (10:00)
--- NOTE | 2020-05-04 10:00 | NUR ---
PATIENT AMBULATED X 1 AROUND NURSES STATION WITH WALKER AND P.T. WITH STANDBY ASSIST.
[2020-05-04] MEDS: PANTOPRAZOLE 40 MG/10 ML VIAL INJ IV SCH (11:59)
[2020-05-04] MEDS: APIXABAN 5 MG TAB PO SCH ×2 (12:00→21:54)
[2020-05-04] MEDS: levoFLOXacin 500MG 100 ML IV SCH (12:00)
--- NOTE | 2020-05-04 13:00 | NUR ---
UNABLE TO TAKE PATIENT FOR ORDERED CT CT SCANNER IS NOT WORKING - CT WILL INFORM FILM HISTORIAN WHEN SCANNER IS FUNCTIONING AGAIN.
--- NOTE | 2020-05-04 14:30 | NUR ---
DR STEARNS VISITS AND EXAMINES PATIENT - NO NEW ORDERS RECEIVED.
--- NOTE | 2020-05-04 15:45 | NUR ---
ASSISTED PATIENT UP TO CHAIR WITH MIN ASSIST. PATIENT HAS BEEN UP TO BSC X 3 WITH ASSIST PER DRAWBRIDGE TENDER THIS SHIFT.
--- NOTE | 2020-05-04 16:00 | NUR ---
Received a call from Dee BILLS who stated that Dr Foley stated to cancel the discharge to [facility] he was going to downgrade the patient to Tele she did not need to be transferred this time.
--- NOTE | 2020-05-04 17:30 | NUR ---
DR MON VISITS AND EXAMINES PATIENT - ORDERS RECEIVED.
--- NOTE | 2020-05-04 21:04 | NUR ---
PATIENT WAS DOWNGRADED TO TELEMETRY STATU, CONDITION STABLE, ASYMPTOMATIC, NO LONGER ON HEPARIN GTT, STARTED ON ELIQUIS. PT OOB TO CHAIR THIS AFTERNOON FOR 3HRS. NOW BED AVAILABLE FOR PATIENT IN RM 292, REPORT GIVEN TO NEGAR ASHTON.WILL TRANSFRT PT IN W/C WITH PORTABLE O2, ON TELE MONITOR. PATIENT INFORMED OF THIS, ALL BELONGINGS WIT PATIENT.
[2020-05-05] MEDS: HYDROmorphone HCL 2 MG/ML VL IV PRN ×5 (02:50→20:30)
[2020-05-05] MEDS: metroNIDAZOLE 500MG/100ML 100 ML IV SCH ×3 (05:30→21:42)
[2020-05-05 05:32] VITALS: BP 129/79
[2020-05-05] MEDS: VANCOMYCIN 1GM/250ML 250 ML IV SCH ×4 (06:00→17:27)
--- NOTE | 2020-05-05 07:35 | NUR ---
Opening Shift Note Assumed care of patient, awake and alert. No S/S of distress/SOB, patient reports lower abdominal pain of 8/10 will medicate per MD orders. Instructed on POC and to call for assist PRN. Bed locked in lowest position, side rails up x2, call light within reach. Safety precautions in place. Will continue to monitor for changes Q1hr and PRN
[2020-05-05] MEDS ORDERED: POTASSIUM CHLORIDE 60 MEQ, LIDOCAINE 1% (LOCAL ANESTH.) 6 ML in SODIUM CHL 0.9% 500 ML IV ONE (08:00)
[2020-05-05] MEDS: SODIUM CHLORIDE 0.9% 1,000 ML IV SCH (08:45)
[2020-05-05 09:00] VITALS: BP 110/51
[2020-05-05] MEDS: APIXABAN 5 MG TAB PO SCH ×2 (10:16→21:42)
[2020-05-05] MEDS: PANTOPRAZOLE 40 MG/10 ML VIAL INJ IV SCH (10:16)
[2020-05-05] MEDS: levoFLOXacin 500MG 100 ML IV SCH (10:22)
[2020-05-05] MEDS ORDERED: LACTULOSE 20Gm/30ML SOLN PO PRN (11:00)
[2020-05-05 12:51] VITALS: BP 115/65
--- NOTE | 2020-05-05 14:41 | NUR ---
assessment Patient is a 30 year old female who is alert and oriented. Patients cognitive abilities are intact. Prior to admission patient lived home with family and functioned independently. Patient informed me she is able to care for her own ADLs. Per patient she will return home to her prior living arrangements post discharge and family will transport her home. Patient informed me she has no need for DME to ambulate. Patient has been on oxygen here in the hospital. Patient may need 02 for home. Patient has no safety issues regarding returning home on discharge. I informed patient she has a right to speak to a social problems specialist regarding all care. I informed patient she has a right to participate in any and all discharge planning. Patient does not have a POA and advanced directive. I have offered patient information on POA and advanced directives. I informed the patient the advantages and benefits of having an Advanced Directive. Patient verbalized understanding and agreed to discharge plan. Addendum: 05/05/20 at 1444 by Ayanna ANDRES Amended: Links added.
--- NOTE | 2020-05-05 14:44 | NUR ---
Nutrition Followup Notes Wt: 126.5 kg Pt was sleeping when rounded this morning. Pt is on [facility] soft diet with adequate PO of 75% x 6 per RN doc Est energy needs [id number] kcal (11-14kcal/kg BW 122.5kg), Est protein needs 55-71g (1-1.3g/kg IBW 54.5kg). Will reassess prn. LABS: CA 8.3 L, ALB 1.8 L GI: Pt with no BM today per RN doc BS: 19 mod risk. Refer to wound assessment report for full details. PES: Inadequate oral intake r/t current medical condition aeb pt with 25% x1 and 100% x 1 with multiple 0% PO per RN note Comments: Will continue to monitor PO status, skin status, pertinent labs and weight trends. Will f/u in 3-5 days. 1) refer pt to OPD on DC. 2) Continue current plan of care
--- NOTE | 2020-05-05 14:48 | NUR ---
D/C planning Per social service consult for home oxygen at 2 l/min. Informed RN Julieta an ABG test is needed in order to complete doctor orders.
[2020-05-05 16:55] VITALS: BP 117/68
[2020-05-05 17:39] LABS: Hemoglobin 9.1 g/dL (12.2-16.2)
[2020-05-05 17:41] LABS: Mean Corpuscular Hemoglobin 24.2 pg (28.0-32.0); Mean Corpuscular Hgb Conc. 31.4 g/dL (32.0-36.0); Mean Corpuscular Volume 77.1 fL (80.0-100.0); Platelet Count (auto) 321 10^3/uL (140-450); Red Blood Cells 3.76 10^6/uL (4.0-5.20); Red Cell Distribution Width 19.2 % (11.8-14.3); White Blood Cell 11.8 10^3/uL (4.4-10.8)
[2020-05-05 17:43] LABS: Band Neutrophils % (manual) 0; Basophils % (manual) 0 (0.0-2.0); Blast Cells 0; Metamyelocytes % 0; Myelocytes % 0; Promyelocytes % 0; Reactive Lymphocytes 0
[2020-05-05 17:56] LABS: BUN/Creatinine Ratio 13.3; Calcium 8.9 mg/dL (8.5-10.1); Magnesium 2.4 mg/dL (1.6-2.6); Potassium 3.8 mmol/L (3.5-5.1)
[2020-05-05 18:12] LABS: Eosinophils % (manual) 2 (0-7); Lymphocytes % (manual) 10 (10.0-50.0); Monocytes % (manual) 8 (0-12)
--- NOTE | 2020-05-05 19:00 | NUR ---
PAGED DR INTERIANO REGARDING PATIENT HAVING SHARP RADIATING PAIN RUN UP AND DOWN HER SPINE, 10/10 PAIN. PAIN MEDICATION IS NOT DUE AT THIS TIME. ENDORSED CARE TO PANTRY WORKER RN.
[2020-05-05] MEDS: ONDANSETRON HCL 4 MG/2 ML VIAL IV PRN (20:30)
[2020-05-05 22:00] VITALS: BP 130/71
[2020-05-06] MEDS: VANCOMYCIN 1GM/250ML 250 ML IV SCH ×4 (00:16→18:00)
[2020-05-06] MEDS: HYDROmorphone HCL 2 MG/ML VL IV PRN ×4 (00:18→13:29)
[2020-05-06 05:00] VITALS: BP 105/59
[2020-05-06] MEDS: metroNIDAZOLE 500MG/100ML 100 ML IV SCH ×2 (05:27→13:45)
--- NOTE | 2020-05-06 07:30 | NUR ---
Opening Shift Note Assumed care of patient, awake and alert. No S/S of distress/SOB, patient reports lower right abdominal pain of 8/10 will medicate per MD orders. Instructed on POC and to call for assist PRN. Bed locked in lowest position, side rails up x2, call light within reach. Safety precautions in place. Will continue to monitor for changes Q1hr and PRN
[2020-05-06 09:00] VITALS: BP 126/77
[2020-05-06] MEDS: PANTOPRAZOLE 40 MG/10 ML VIAL INJ IV SCH (09:03)
[2020-05-06] MEDS: APIXABAN 5 MG TAB PO SCH (09:03)
[2020-05-06] MEDS: levoFLOXacin 500MG 100 ML IV SCH (09:03)
[2020-05-06] MEDS ORDERED: IOHEXOL 350 MG/ML 100ML IJ ONE (12:07)
[2020-05-06 13:09] VITALS: BP 122/74
--- NOTE | 2020-05-06 14:31 | NUR ---
D/C Planning Per social service consult for home oxygen and bedside commode. Faxed clinical information to [place]. Per Shanon Ho they will deliver medical equipment today between 4-6:30pm. Obtain authorization from [facility] [id number].
--- NOTE | 2020-05-06 15:15 | NUR ---
VASC BAND REMOVED PER REMOVAL INSTRUCTIONS VASC BAND DEFLATED PER MD ORDERS FOLLOWING REMOVAL INSTRUCTIONS, SEE HARD CHART. NO BLEEDING, REDNESS OR SWELLING NOTED AT THIS TIME. GAUZE WITH TEGADERM APPLIED. LEFT WRIST MAINTAINS ADEQUATE CIRCULATION, SENSATION, AND MOTOR FUNCTION. PATIENT WAS EDUCATED PER REMOVAL INSTRUCTIONS VIA TUMBLER MACHINE OPERATOR HELPER, PATIENT VERBALIZED UNDERSTANDING. Addendum: 05/06/20 at 1520 by Julieta Hope RN INCORRECT PATIENT, CARE PROVIDER MISTAKE.
[2020-05-06] MEDS ORDERED: FAMO20TA10 PO (15:20)
[2020-05-06] MEDS ORDERED: CEPH-37 PO (15:20)
[2020-05-06] MEDS ORDERED: APIX5TAB PO (15:20)
[2020-05-06] MEDS ORDERED: METR500T PO (15:20)
--- NOTE | 2020-05-06 15:20 | NUR ---
MRSA SWAB SENT TO LAB.
--- NOTE | 2020-05-06 18:10 | NUR ---
DISCHARGE HOME Discharge instructions given as ordered. Encourage to follow up with PMD and Dr. Misbah Wilcox as instructed. All questions and concerns addressed. Patient verbalized understanding. Medication reconciliation form completed and copy given to patient. IV removed with catheter intact, pressure dressing applied. Telemetry unit returned to ICU. Patient taken to vehicle via wheelchair with all personal belongings, accompanied by staff. No distress noted at time of departure.
[2020-05-11] MEDS ORDERED: APIXABAN 5 MG TAB PO SCH (22:00)
== END 2020-05-06 18:10 | disposition home or self-care (01) | DRG 720 ==
LOC: EDBD 12:20 → ER 12:20 → TELE 12:21 → ICU WEST 04-28 10:46 → TELE-WESTW 05-04 21:42
PROVIDERS: ADMIT Internal Medicine; ATTEND Internal Medicine
PROC: B31S1ZZ Fluoroscopy of Right Pulmonary Artery using Low Osmolar Contrast (ICD-10-PCS; principal; 2020-04-30)
PROC: 3E06317 Introduction of Other Thrombolytic into Central Artery, Percutaneous Approach (ICD-10-PCS; 2020-04-30)
PROC: 06H03DZ Insertion of Intraluminal Device into Inferior Vena Cava, Percutaneous Approach (ICD-10-PCS; 2020-04-30)
PROC: B5191ZZ Fluoroscopy of Inferior Vena Cava using Low Osmolar Contrast (ICD-10-PCS; 2020-04-30)
DX: A41.9 Sepsis, unspecified organism (principal); I26.92 Saddle embolus of pulmonary artery without acute cor pulmonale; I82.412 Acute embolism and thrombosis of left femoral vein; I82.432 Acute embolism and thrombosis of left popliteal vein; K81.0 Acute cholecystitis; E66.01 Morbid (severe) obesity due to excess calories; E88.09 Other disorders of plasma-protein metabolism, not elsewhere classified; I95.9 Hypotension, unspecified; Z68.42 Body mass index [BMI] 45.0-49.9, adult; Z20.828 Contact with and (suspected) exposure to other viral communicable diseases; E04.1 Nontoxic single thyroid nodule; F17.210 Nicotine dependence, cigarettes, uncomplicated; G43.909 Migraine, unspecified, not intractable, without status migrainosus; M79.18 Myalgia, other site; Z72.89 Other problems related to lifestyle; R74.01 Elevation of levels of liver transaminase levels; Z79.01 Long term (current) use of anticoagulants; Z91.19 Patient's noncompliance with other medical treatment and regimen
CPT/HCPCS: 36415; 36600; 37191; 37211; 71045; 71275; 74176; 74177; 75825; 76700; 80048; 80053; 80076; 80202; 81001; 81241; 82150; 82805; 83605; 83690; 83735; 83880; 84100; 84443; 84484; 85007; 85025; 85027; 85379; 85610; 85613; 85670; 85705; 85730; 85732; 87040; 87077; 87081; 87086; 87186; 93005; 93306; 93971; 99152; C9113; G0378; J0696; J1956; J2001; J2250; J2405; J3480; J3490; J7060